=== PATIENT | male | born 1950 | race Asian ===

== ENCOUNTER 2019-05-30 19:17 | Emergency (ER) | payer MEDICARE, OTHER ==
[~2019-05-30] VITALS: Ht 172.7 cm; Wt 68.0 kg
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
[2019-05-30 19:27] VITALS: BP 190/100
--- NOTE | 2019-05-30 19:30 | NUR ---
ED Nurse Note: XR AT BEDSIDE
[2019-05-30] MEDS ORDERED: IBUPROFEN600 MG ORAL (20:42)
[2019-05-30 20:45] VITALS: BP_SYST 145; BP_DIAS 82; BP_DIAS 89
--- NOTE | 2019-05-30 20:45 | NUR ---
ER DISCHARGE NOTE: Patient is cleared to be discharged per ERMD, pt is aox4, on room air, with stable vital signs. pt was given dc and prescription instructions, pt was able to verbalize understanding, pt id band removed without complications. pt is able to ambulate with steady gait. pt took all belongings.
--- NOTE | 2019-05-31 09:04 | Diagnostic Imaging Report ---
Indication: Left upper anterior rib pain Technique: One view of the chest, 2 views of the left ribs Comparison: none Findings: Lungs and pleural spaces are clear. Heart size is normal. No pneumothorax. The heart size is normal. The aorta is tortuous Impression: No acute process
== END 2019-05-30 20:45 | disposition home or self-care (01) ==
LOC: EDBD 19:17 → EMR 19:32
DX: S20.212A Contusion of left front wall of thorax, initial encounter (principal); I10 Essential (primary) hypertension; V43.52XA Car driver injured in collision with other type car in traffic accident, initial encounter; Y92.410 Unspecified street and highway as the place of occurrence of the external cause; R00.0 Tachycardia, unspecified
CPT/HCPCS: 93005; 99283